=== PATIENT | female | born 1980 | race Caucasian/White ===

== ENCOUNTER 2016-08-20 17:56 | Emergency (ER) | payer OTHER ==
[~2016-08-20] VITALS: Ht 162.6 cm; Wt 129.5 kg
[~2016-08-20 17:56] MED LIST: ABILIFY 10MG TA10 MG PO; ABILIFY2 MG PO; ABX; ALDOMET 250MG250 MG PO; AMITRIPTYLINE H25 M1 PO; AMITRIPTYLINE H50 M1 PO; AMOXICILLIN 50500 MG PO; AMOXICILLIN875 MG PO; ANUSOL-HC SUPPO25 MG RC; BACTRIM DS 8001 TAB PO; BRINTELLIX20; CEFACLOR500 M2 PO; CEFTIN 250250 MG/TAB PO; CEPHALEXIN500 M1 PO; CIPRO 250MG TA250 MG PO; CIPRO 500MG TA500 MG PO; CLARITIN 1010 MG/TAB PO; COLACE 100100 MG/CAP PO; DESYREL 50MG50 MG PO; DOXYCYCLINE 10100 MG PO; FERROUS SU325 MG/TAB PO; FLEXERIL 1010 MG/TAB PO; FLEXERIL5 MG PO; FLOMAX 0.40.4 MG/CAP PO; IRON FERROUS S325 MG PO; K-TAB20 PO; LEVAQUIN 5500 MG/TA1 PO; LEXAPRO 10MG10 MG PO; LINZESS145CAP PO; LORTAB 5/500 501 TAB PO; LUNESTA 1MG TAB1 MG PO; LUNESTA3 MG PO; MAXALT10 MG; MELATONIN0.3 MG; MELATONIN3 M1 PO; MOBIC15 MG PO; MOTRIN 600600 MG/TAB PO; MOTRIN 800800 MG/TAB PO; NAPROSYN500 MG PO; NEURONTIN600 MG/TAB PO; NO HOME MEDICATIONS; NORCO 325 MG-51 TAB PO; NORCO 325 MG-7.1 TAB PO; PEN-VEE K500 MG PO; PEPCID 20MG TAB20 MG; PEPCID 20MG TAB20 MG PO; PERCOCET 325 MG1 TA2 PO; PERCOCET 325 MG1 TA3 PO; PERCOCET 325 MG1 TAB PO; PERCOCET 5/321 UDTAB PO; PHENERGAN 25 TA25 MG PO; PRENATAL1 TA1 PO; PRENATAL1 TA2 PO; PRIL40 PO; PRILOTC PO; PROMETHAZINE12.5 M5 PO; PROTONIX 40MG T40 MG PO; PROTONIX20 MG PO; PYRIDIUM200 M1 PO; REGLAN 10MG10 MG/TAB PO; ROBAXIN 50500 MG/TAB PO; ROBAXIN 75750 MG/TAB PO; TYLENOL 325MG325 MG PO; ULTRAM 50MG TAB50 MG PO; VOLTAREN 75 DR75 MG PO; XANAX 0.5MG0.5 MG PO; ZANAFLEX2 MG PO; ZOFRAN 4MG T4 MG/TAB PO; ZOFRAN ODT4 MG PO; ZOFRAN ODT8 MG PO; ZOFRAN8 MG PO
[2016-08-20 18:10] VITALS: TEMP 98
[2016-08-20 18:40] LABS: BASO % 0.3 % (0.0-2.0); EOS # 0.4 (0.0-0.7); EOS % 4.1 % (0-4.0); GRAN # 5.9 (1.4-6.5); GRAN % 60.6 % (42.2-75.2); HEMATOCRIT 39.3 % (37.0-47.0); HEMOGLOBIN 13.1 g/dl (12.5-16.0); LYMPH # 2.7 (1.2-3.4); LYMPH % 27.8 % (20.0-51.0); MEAN CELL VOLUME 90 fl (80.0-100.0); MEAN CORPUSCULAR HEMOGLOBIN 30 pg (27.0-31.0); MEAN CORPUSCULAR HGB CONC 33 g/dl (33.0-37.0); MEAN PLATELET VOLUME 9.3 fl (7.4-10.4); MONO # 0.7 (0.1-0.6); MONO % 6.9 % (1.7-9.3); PLATELET COUNT 279 K/mm3 (130-400); RED BLOOD COUNT 4.36 M/mm3 (4.10-5.30); REDCELL DISTRIBUTION WIDTH-CV 12.8 % (11.5-14.5); WHITE BLOOD COUNT 9.8 K/mm3 (4.8-10.8)
[2016-08-20 18:52] LABS: ADJUSTED CALCIUM 9.5 mg/dL (8.4-10.2); ALBUMIN 4.1 gm/dL (3.5-5.0); BILIRUBIN,TOTAL 0.6 mg/dL (0.0-1.0); C-REACTIVE PROTEIN 1.2 mg/dL (0.0-0.9); CALCIUM 9.6 mg/dL (8.4-10.2); CREATININE, serum 0.81 mg/dL (0.52-1.25); POTASSIUM 3.9 mmol/L (3.4-5.0); TOTAL PROTEIN 7.6 gm/dL (6.4-8.2)
[2016-08-20 19:35] VITALS: BP 126/69; PULSE 87
== END 2016-08-20 19:35 | disposition home or self-care (01) ==
LOC: COL.ER 17:56
PROVIDERS: Nurse Practitioner
DX: R10.13 Epigastric pain (principal)
CPT/HCPCS: J2550

== ENCOUNTER 2016-09-06 17:59 | Emergency (ER) | payer OTHER ==
[~2016-09-06] VITALS: Ht 162.6 cm; Wt 129.5 kg
[2016-09-06 18:01] VITALS: TEMP 97.9
[2016-09-06 18:39] LABS: BASO % 0.3 % (0.0-2.0); EOS # 0.6 (0.0-0.7); EOS % 4.4 % (0-4.0); GRAN % 56.6 % (42.2-75.2); HEMATOCRIT 42.9 % (37.0-47.0); HEMOGLOBIN 14.1 g/dl (12.5-16.0); MEAN CELL VOLUME 90 fl (80.0-100.0); MEAN CORPUSCULAR HEMOGLOBIN 30 pg (27.0-31.0); MEAN CORPUSCULAR HGB CONC 33 g/dl (33.0-37.0); MEAN PLATELET VOLUME 9.4 fl (7.4-10.4); MONO # 0.8 (0.1-0.6); MONO % 6.3 % (1.7-9.3); PLATELET COUNT 332 K/mm3 (130-400); RED BLOOD COUNT 4.76 M/mm3 (4.10-5.30); REDCELL DISTRIBUTION WIDTH-CV 12.8 % (11.5-14.5); WHITE BLOOD COUNT 12.4 K/mm3 (4.8-10.8)
[2016-09-06 18:48] LABS: PH 5 (5-8); SQUAMOUS EPITHELIAL 0-2 /hpf; URINE APPEARANCE Clear; URINE BACTERIA Rare /hpf; URINE BILIRUBIN Negative (NEGATIVE); URINE BLOOD 1+ (NEGATIVE); URINE COLOR Yellow; URINE GLUCOSE Negative (NEGATIVE); URINE KETONE Negative (NEGATIVE); URINE RBC 0-2 /hpf; URINE UROBILINOGEN Negative (NEGATIVE)
[2016-09-06 18:54] LABS: ADJUSTED CALCIUM 9.2 mg/dL (8.4-10.2); ALBUMIN 4.2 gm/dL (3.5-5.0); BILIRUBIN,TOTAL 0.7 mg/dL (0.0-1.0); CALCIUM 9.4 mg/dL (8.4-10.2); CREATININE, serum 0.87 mg/dL (0.52-1.25); POTASSIUM 3.5 mmol/L (3.4-5.0); TOTAL PROTEIN 7.6 gm/dL (6.4-8.2)
[2016-09-06] MEDS ORDERED: ULTRAM 50MG TAB50 MG PO (19:02)
[2016-09-06 19:24] VITALS: BP 134/74; PULSE 81
== END 2016-09-06 19:22 | disposition home or self-care (01) ==
LOC: COL.ER 17:59
PROVIDERS: Family Medicine
DX: N20.0 Calculus of kidney (principal); Z87.442 Personal history of urinary calculi
CPT/HCPCS: J1885; J2405; J7030

== ENCOUNTER 2017-01-27 20:42 | Emergency (ER) | payer OTHER ==
[~2017-01-27] VITALS: Ht 162.6 cm; Wt 127.3 kg
[2017-01-27 20:52] VITALS: TEMP 98.8
[2017-01-27] MEDS ORDERED: FLEXERIL5 MG PO (21:05)
[2017-01-27 21:17] LABS: BASO % 0.4 % (0.0-2.0); EOS # 0.3 (0.0-0.7); EOS % 3.4 % (0-4.0); GRAN # 5.3 (1.4-6.5); GRAN % 54.4 % (42.2-75.2); HEMATOCRIT 40.4 % (37.0-47.0); HEMOGLOBIN 13.8 g/dl (12.5-16.0); LYMPH # 3.3 (1.2-3.4); LYMPH % 34.3 % (20.0-51.0); MEAN CELL VOLUME 86 fl (80.0-100.0); MEAN CORPUSCULAR HEMOGLOBIN 29 pg (27.0-31.0); MEAN CORPUSCULAR HGB CONC 34 g/dl (33.0-37.0); MEAN PLATELET VOLUME 9.1 fl (7.4-10.4); MONO # 0.7 (0.1-0.6); MONO % 7.3 % (1.7-9.3); PLATELET COUNT 302 K/mm3 (130-400); RED BLOOD COUNT 4.69 M/mm3 (4.10-5.30); REDCELL DISTRIBUTION WIDTH-CV 12.6 % (11.5-14.5); WHITE BLOOD COUNT 9.7 K/mm3 (4.8-10.8)
[2017-01-27 21:35] LABS: ERYTHROCYTE SEDIMENTATION RATE 16 mm/hr (0-20)
[2017-01-27 21:39] LABS: ADJUSTED CALCIUM 9.1 mg/dL (8.4-10.2); ALBUMIN 4.6 gm/dL (3.5-5.0); BILIRUBIN,TOTAL 0.8 mg/dL (0.0-1.0); C-REACTIVE PROTEIN 1.4 mg/dL (0.0-0.9); CALCIUM 9.6 mg/dL (8.4-10.2); CREATININE, serum 0.87 mg/dL (0.52-1.25); POTASSIUM 3.6 mmol/L (3.4-5.0)
[2017-01-27 22:25] VITALS: BP 142/83; PULSE 90
== END 2017-01-27 22:35 | disposition home or self-care (01) ==
LOC: COL.ER 20:42
PROVIDERS: Emergency Medicine
DX: R51 Headache (principal); G43.909 Migraine, unspecified, not intractable, without status migrainosus
CPT/HCPCS: J1170; J1885; J2405; J7030

== ENCOUNTER 2017-04-16 19:42 | Emergency (ER) | payer OTHER ==
[~2017-04-16] VITALS: Ht 162.6 cm; Wt 127.3 kg
[2017-04-16 19:43] VITALS: BP 153/76; TEMP 98.6
[2017-04-16 20:24] LABS: PH 6 (5-8); SQUAMOUS EPITHELIAL 0-2 /hpf; URINE APPEARANCE Clear; URINE BACTERIA Rare /hpf; URINE BILIRUBIN Negative (NEGATIVE); URINE BLOOD 1+ (NEGATIVE); URINE COLOR Yellow; URINE GLUCOSE Negative (NEGATIVE); URINE KETONE Negative (NEGATIVE); URINE UROBILINOGEN Negative (NEGATIVE)
[2017-04-16] MEDS ORDERED: CEPHALEXIN500 M1 PO (20:31)
[2017-04-16 21:00] VITALS: PULSE 88
== END 2017-04-16 21:02 | disposition home or self-care (01) ==
LOC: COL.ER 19:42
PROVIDERS: Physician Assistant
DX: N39.0 Urinary tract infection, site not specified (principal); F32.9 Major depressive disorder, single episode, unspecified; F41.9 Anxiety disorder, unspecified; M54.9 Dorsalgia, unspecified; G89.29 Other chronic pain; Z87.442 Personal history of urinary calculi; Z90.49 Acquired absence of other specified parts of digestive tract; Z90.710 Acquired absence of both cervix and uterus
CPT/HCPCS: J1885; J2360

== ENCOUNTER 2017-05-11 18:19 | Emergency (ER) | payer OTHER ==
[~2017-05-11] VITALS: Ht 162.6 cm; Wt 127.3 kg
[2017-05-11 18:27] VITALS: BP 138/76; TEMP 98.4
[2017-05-11 19:53] LABS: PH 5 (5-8); URINE APPEARANCE Hazy; URINE BACTERIA Rare /hpf; URINE BILIRUBIN Negative (NEGATIVE); URINE BLOOD 1+ (NEGATIVE); URINE COLOR Yellow; URINE GLUCOSE Negative (NEGATIVE); URINE KETONE Negative (NEGATIVE); URINE RBC 0-2 /hpf; URINE UROBILINOGEN Negative (NEGATIVE)
[2017-05-11] MEDS ORDERED: CIPRO 500MG TA500 MG PO (21:31)
[2017-05-11 21:51] VITALS: PULSE 80
== END 2017-05-11 21:52 | disposition home or self-care (01) ==
LOC: COL.ER 18:19
PROVIDERS: Emergency Medicine
DX: N39.0 Urinary tract infection, site not specified (principal); F32.9 Major depressive disorder, single episode, unspecified; F41.9 Anxiety disorder, unspecified; G43.909 Migraine, unspecified, not intractable, without status migrainosus
CPT/HCPCS: J1885; J2405; J7030

== ENCOUNTER 2017-08-01 17:37 | Emergency (ER) | payer OTHER ==
[~2017-08-01] VITALS: Ht 162.6 cm; Wt 127.3 kg
[2017-08-01 17:39] VITALS: BP 134/78; TEMP 98.8
[2017-08-01 19:03] LABS: COLLECTION METHOD CLEAN CATCH
[2017-08-01 19:12] LABS: MUCOUS Present /lpf; PH 5 (5-8); SQUAMOUS EPITHELIAL 0-2 /hpf; URINE APPEARANCE Clear; URINE BACTERIA None Seen /hpf; URINE BILIRUBIN Negative (NEGATIVE); URINE BLOOD Negative (NEGATIVE); URINE COLOR Yellow; URINE GLUCOSE Negative (NEGATIVE); URINE KETONE Negative (NEGATIVE); URINE LEUKOCYTE ESTERASE Negative (NEGATIVE); URINE PROTEIN(semi-quant) Negative (NEGATIVE); URINE RBC 0-2 /hpf; URINE UROBILINOGEN Negative (NEGATIVE); URINE WBC 0-2 /hpf
[2017-08-01 19:51] LABS: BASO % 0.5 % (0.0-2.0); EOS # 0.3 (0.0-0.7); EOS % 3.7 % (0-4.0); GRAN # 4.7 (1.4-6.5); GRAN % 54.7 % (42.2-75.2); HEMATOCRIT 38.9 % (37.0-47.0); HEMOGLOBIN 12.9 g/dl (12.5-16.0); LYMPH # 2.9 (1.2-3.4); LYMPH % 33.8 % (20.0-51.0); MEAN CELL VOLUME 91 fl (80.0-100.0); MEAN CORPUSCULAR HEMOGLOBIN 30 pg (27.0-31.0); MEAN CORPUSCULAR HGB CONC 33 g/dl (33.0-37.0); MEAN PLATELET VOLUME 9.6 fl (7.4-10.4); MONO # 0.6 (0.1-0.6); PLATELET COUNT 304 K/mm3 (130-400); RED BLOOD COUNT 4.29 M/mm3 (4.10-5.30); WHITE BLOOD COUNT 8.6 K/mm3 (4.8-10.8)
[2017-08-01 20:06] LABS: ALBUMIN 4.6 gm/dL (3.5-5.0); BILIRUBIN,TOTAL 0.4 mg/dL (0.0-1.0); C-REACTIVE PROTEIN 1.3 mg/dL (0.0-0.9); CALCIUM 9.5 mg/dL (8.4-10.2); CREATININE, serum 0.87 mg/dL (0.52-1.25); POTASSIUM 3.9 mmol/L (3.4-5.0); TOTAL PROTEIN 8.1 gm/dL (6.4-8.2)
[2017-08-01 22:03] VITALS: PULSE 77
== END 2017-08-01 22:04 | disposition home or self-care (01) ==
LOC: COL.ER 17:37
PROVIDERS: Nurse Practitioner
DX: R10.9 Unspecified abdominal pain (principal); F32.9 Major depressive disorder, single episode, unspecified; F41.9 Anxiety disorder, unspecified; G43.909 Migraine, unspecified, not intractable, without status migrainosus; M54.9 Dorsalgia, unspecified; G89.29 Other chronic pain; Z90.49 Acquired absence of other specified parts of digestive tract; Z90.710 Acquired absence of both cervix and uterus
CPT/HCPCS: J1170; J1885; J2405; J2550

== ENCOUNTER 2017-08-06 16:29 | Emergency (ER) | payer OTHER ==
[~2017-08-06] VITALS: Ht 162.6 cm; Wt 127.3 kg
[2017-08-06 16:45] VITALS: BP 162/72; TEMP 99
[2017-08-06 17:05] LABS: COLLECTION METHOD CLEAN CATCH
[2017-08-06 17:11] LABS: MUCOUS Present /lpf; PH 5 (5-8); SQUAMOUS EPITHELIAL 0-2 /hpf; URINE APPEARANCE Clear; URINE BACTERIA None Seen /hpf; URINE BILIRUBIN Negative (NEGATIVE); URINE BLOOD Negative (NEGATIVE); URINE COLOR Yellow; URINE GLUCOSE Negative (NEGATIVE); URINE KETONE Negative (NEGATIVE); URINE LEUKOCYTE ESTERASE Negative (NEGATIVE); URINE PROTEIN(semi-quant) Negative (NEGATIVE); URINE RBC 0-2 /hpf; URINE UROBILINOGEN Negative (NEGATIVE); URINE WBC 0-2 /hpf
[2017-08-06 17:16] LABS: BASO % 0.5 % (0.0-2.0); EOS # 0.3 (0.0-0.7); GRAN # 4.7 (1.4-6.5); HEMATOCRIT 41.7 % (37.0-47.0); HEMOGLOBIN 13.8 g/dl (12.5-16.0); LYMPH # 3.1 (1.2-3.4); LYMPH % 35.2 % (20.0-51.0); MEAN CELL VOLUME 91 fl (80.0-100.0); MEAN CORPUSCULAR HEMOGLOBIN 30 pg (27.0-31.0); MEAN CORPUSCULAR HGB CONC 33 g/dl (33.0-37.0); MEAN PLATELET VOLUME 9.2 fl (7.4-10.4); MONO # 0.7 (0.1-0.6); MONO % 8.1 % (1.7-9.3); PLATELET COUNT 345 K/mm3 (130-400); RED BLOOD COUNT 4.58 M/mm3 (4.10-5.30); WHITE BLOOD COUNT 8.8 K/mm3 (4.8-10.8)
[2017-08-06 17:30] LABS: ADJUSTED CALCIUM 9.6 mg/dL (8.4-10.2); ALBUMIN 4.8 gm/dL (3.5-5.0); BILIRUBIN,TOTAL 0.6 mg/dL (0.0-1.0); CALCIUM 10.2 mg/dL (8.4-10.2); CREATININE, serum 0.88 mg/dL (0.52-1.25); POTASSIUM 3.9 mmol/L (3.4-5.0); TOTAL PROTEIN 8.3 gm/dL (6.4-8.2)
[2017-08-06] MEDS ORDERED: PHENERGAN 25 TA25 MG PO (17:58)
[2017-08-06] MEDS ORDERED: NEXIUM 20MG20 MG PO (17:58)
[2017-08-06 18:43] VITALS: PULSE 86
== END 2017-08-06 18:43 | disposition home or self-care (01) ==
LOC: COL.ER 16:29
PROVIDERS: Emergency Medicine
DX: R10.13 Epigastric pain (principal); Z87.19 Personal history of other diseases of the digestive system
CPT/HCPCS: C9113; J1170; J2550; J7030

== ENCOUNTER 2017-08-26 20:58 | Emergency (ER) | payer OTHER ==
[~2017-08-26] VITALS: Ht 162.6 cm; Wt 127.3 kg
[~2017-08-26 20:58] MED LIST changes: +NEXIUM 20MG20 MG PO
[2017-08-26 21:00] VITALS: TEMP 98.1
[2017-08-26 22:31] VITALS: BP 136/78; PULSE 76
== END 2017-08-26 22:33 | disposition home or self-care (01) ==
LOC: COL.ER 20:58
DX: S20.211A Contusion of right front wall of thorax, initial encounter (principal); S70.01XA Contusion of right hip, initial encounter; W18.2XXA Fall in (into) shower or empty bathtub, initial encounter
CPT/HCPCS: A9284

== ENCOUNTER 2017-09-24 17:40 | Emergency (ER) | payer OTHER ==
[~2017-09-24] VITALS: Ht 162.6 cm; Wt 118.2 kg
[2017-09-24 17:44] VITALS: BP 140/78; TEMP 98.2
[2017-09-24 19:21] LABS: COLLECTION METHOD CLEAN CATCH
[2017-09-24 19:29] LABS: MUCOUS Present /lpf; PH 5 (5-8); SQUAMOUS EPITHELIAL 0-2 /hpf; URINE APPEARANCE Clear; URINE BACTERIA None Seen /hpf; URINE BILIRUBIN Negative (NEGATIVE); URINE BLOOD Negative (NEGATIVE); URINE COLOR Yellow; URINE GLUCOSE Negative (NEGATIVE); URINE KETONE Negative (NEGATIVE); URINE LEUKOCYTE ESTERASE Negative (NEGATIVE); URINE NITRATE Negative (NEGATIVE); URINE PROTEIN(semi-quant) Negative (NEGATIVE); URINE RBC 0-2 /hpf; URINE UROBILINOGEN Negative (NEGATIVE)
[2017-09-24 20:33] LABS: BASO % 0.2 % (0.0-2.0); EOS # 0.2 (0.0-0.7); GRAN # 5.8 (1.4-6.5); GRAN % 60.4 % (42.2-75.2); HEMATOCRIT 40.2 % (37.0-47.0); HEMOGLOBIN 13.6 g/dl (12.5-16.0); LYMPH # 2.9 (1.2-3.4); LYMPH % 30.6 % (20.0-51.0); MEAN CELL VOLUME 89 fl (80.0-100.0); MEAN CORPUSCULAR HEMOGLOBIN 30 pg (27.0-31.0); MEAN CORPUSCULAR HGB CONC 34 g/dl (33.0-37.0); MEAN PLATELET VOLUME 9.1 fl (7.4-10.4); MONO # 0.6 (0.1-0.6); MONO % 6.5 % (1.7-9.3); PLATELET COUNT 292 K/mm3 (130-400); RED BLOOD COUNT 4.51 M/mm3 (4.10-5.30); REDCELL DISTRIBUTION WIDTH-CV 12.4 % (11.5-14.5)
[2017-09-24 20:42] LABS: ALBUMIN 4.9 gm/dL (3.5-5.0); BILIRUBIN,TOTAL 0.6 mg/dL (0.0-1.0); CALCIUM 9.7 mg/dL (8.4-10.2); CREATININE, serum 0.77 mg/dL (0.52-1.25); POTASSIUM 3.9 mmol/L (3.4-5.0); TOTAL PROTEIN 8.5 gm/dL (6.4-8.2)
[2017-09-24 23:12] VITALS: PULSE 82
== END 2017-09-24 23:14 | disposition home or self-care (01) ==
LOC: COL.ER 17:40
PROVIDERS: Nurse Practitioner Primary Care
DX: R10.31 Right lower quadrant pain (principal); Z87.442 Personal history of urinary calculi; Z90.49 Acquired absence of other specified parts of digestive tract; Z90.710 Acquired absence of both cervix and uterus
CPT/HCPCS: J1170; J2270; J2405

== ENCOUNTER 2017-09-29 20:11 | Emergency (ER) | payer OTHER ==
[~2017-09-29] VITALS: Ht 162.6 cm; Wt 118.2 kg
[2017-09-29 20:14] VITALS: BP 127/79; TEMP 98.5
[2017-09-29] MEDS ORDERED: DOXYCYCLINE 10100 MG PO (20:32)
[2017-09-29 20:55] VITALS: PULSE 85
== END 2017-09-29 20:58 | disposition home or self-care (01) ==
LOC: COL.ER 20:11
DX: L03.90 Cellulitis, unspecified (principal); F32.9 Major depressive disorder, single episode, unspecified; F41.9 Anxiety disorder, unspecified; Z90.710 Acquired absence of both cervix and uterus; Z90.49 Acquired absence of other specified parts of digestive tract; Z88.1 Allergy status to other antibiotic agents

== ENCOUNTER 2018-11-29 08:24 | Day surgery (SDC) | payer SELFPAY ==
[~2018-11-29] VITALS: Ht 162.6 cm; Wt 107.6 kg
[2018-11-29] VITALS (8 sets, daily range): BP systolic 107–154; BP diastolic 47–88; PULSE 71–93; TEMP 98.1–98.3
--- NOTE | 2018-11-29 12:23 | NUR ---
AMBULATED TO RESTROOM, VOIDED 800 CLEAR LIGHT RED URINE, STRAINED, NO SEDIMENT NOTED.
--- NOTE | 2018-11-29 15:17 | NUR ---
PATIENT RETURNS VIA CART FROM OR. SHIVERING, GIVEN WARM BLANKET. DECLINES EATING OR DRINKING AT THIS TIME. VS STARTED. CALL LIGHT WITHIN REACH. AT BEDSIDE.
--- NOTE | 2018-11-29 15:21 | NUR ---
SEE MAR FOR MEDICATION. EATING AND DRINKING. CALL LIGHT IN REACH.
--- NOTE | 2018-11-29 15:35 | NUR ---
TOLERATED FOOD AND DRINK. IV SALINE LOCKED. DENIES NEEDS AT THIS TIME. CALL LIGHT WITHIN REACH. AT BEDSIDE. WILL CONTINUE TO MONITOR.
--- NOTE | 2018-11-29 15:40 | NUR ---
PATIENT IV DC'D, PRESSURE HELD. VS HAVE REMAINED STABLE. PAIN IS RATED AT 5/10 LOWER LEFT BACK. NAUSEA HAS RESOLVED. DISCHARGE INSTRUCTIONS GIVEN TO PATIENT AND . VERBALIZED UNDERSTANDING. PATIENT WAS GIVEN A URINE HAT AND STRAINER, VERBALIZED UNDERSTANDING ON HOW TO USE. FOLLOW UP APPT WAS MADE. PATIENT AMBULATED TO PERSONAL CAR WITH STEADY GAIT.
== END 2018-11-29 15:30 | disposition home or self-care (01) ==
LOC: SDCO 08:24
DX: N20.0 Calculus of kidney (principal); I10 Essential (primary) hypertension; Z87.442 Personal history of urinary calculi; Z79.899 Other long term (current) drug therapy; K21.9 Gastro-esophageal reflux disease without esophagitis; F32.9 Major depressive disorder, single episode, unspecified; R25.1 Tremor, unspecified; Z90.710 Acquired absence of both cervix and uterus; Z90.49 Acquired absence of other specified parts of digestive tract; Z98.890 Other specified postprocedural states; F41.9 Anxiety disorder, unspecified
CPT/HCPCS: J0690; J2405; J2704; J3010; J7120